=== PATIENT | female | born 1965 | race Caucasian/White ===

== ENCOUNTER 2018-08-19 09:34 | Emergency (ER) | payer SELFPAY ==
--- NOTE | 2018-08-19 11:03 | EDM.PDOC ---
ED HPI GENERAL MEDICAL PROBLEM - General Chief Complaint: Gastrointestinal Problem Stated Complaint: VOMITING/DIARRHEA Time Seen by Provider: 08/19/18 11:02 Source of Information: Reports: Patient History Limitations: Reports: No Limitations - History of Present Illness INITIAL COMMENTS - FREE TEXT/NARRATIVE: Patient is a 52-year-old female presents ED complaining of right upper quadrant abdominal pain with diarrhea every 2 hours while awake. States the discomfort and diarrhea started this past Monday. She has a previous diagnosis of C. difficile 4 requiring oral antibiotics and also fecal transplant. Last episode was 2 years ago. As of recent she has been on extended course of antibiotics including: Cipro which was recently completed this past for concerns of developing a infection with passing kidney stone. She has a kidney stone that measures 5 mm in diameter to the right urinary tract system that she continues to try and pass. She has appointment with urologist this coming week if it does not pass by . In addition she was on Keflex 2 weeks prior for a root canal. She is quite convinced at this point that she has C. difficile again. She says it has a distinct smell present. She states in the past testing indicated she did not have C. difficile. They put her on loperamide to decrease her bowel movements and became septic. Further testing indicated she did have C. difficile. In addition she does have some discomfort with starting to urinate. Denies any burning sensation. The pain to the right flank and right CVA area is chronic unchanged with recent diagnosis of kidney stone. She has had her gallbladder removed. She states in the past with being C. difficile diagnosis pain would start at the right upper quadrant. 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 In the past she's also become septic due to axis of the port right chest in non sterile manner. She has no port in place at this time. She refuses IV at this time. Right Upper Abdominal Pain Score (Numeric/FACES): 7 - Related Data Allergies Allergy/AdvReac Type Severity Reaction Status Date / Time codeine Allergy Itching Verified 08/19/18 09:58 fentanyl Allergy Other Verified 08/19/18 09:58 Sulfa (Sulfonamide Allergy Hives Verified 08/19/18 09:58 Antibiotics) Home Meds: Home Meds Acetaminophen/oxyCODONE [Percocet 325-5 MG] 1 each PO QID PRN #15 tab 08/19/18 [ Rx] Losartan [Cozaar] 50 mg PO DAILY 08/19/18 [History] Metoprolol Succinate 100 mg PO BID 08/19/18 [History] Ondansetron [Zofran ODT] 4 mg PO Q6H PRN #15 tab.dis 08/19/18 [Rx] Potassium Chloride [Klor-Con M20] 60 meq PO DAILY 08/19/18 [History] Tamsulosin HCl [Flomax] 0.4 mg PO QAM #7 cap.er.24h 08/19/18 [Rx] Past Medical History Oncologic (Cancer) History: Reports: Breast, Other (See Below) Other Oncologic History: mets to c5-c7 - Past Surgical History GI Surgical History: Reports: Appendectomy, Cholecystectomy, Other (See Below) Other GI Surgeries/Procedures: colon resection Oncologic Surgical History: Reports: Biopsy of Breast Social & Family History - Tobacco Use Smoking Status *Q: Never Smoker - Caffeine Use Caffeine Use: Reports: None - Recreational Drug Use Recreational Drug Use: No ED ROS GENERAL - Review of Systems Review Of Systems: See Below Constitutional: Reports: Decreased Appetite. Denies: Fever, Chills, Malaise, Weakness, Fatigue HEENT: Reports: No Symptoms Respiratory: Reports: No Symptoms Cardiovascular: Reports: No Symptoms GI/Abdominal: Reports: Abdominal Pain (ruq), Diarrhea, Decreased Appetite, Distension, Nausea. Denies: Black Stool, Bloody Stool, Constipation, Flatus, Hematemesis, Hematochezia, Melena, Vomiting : Reports: Dysuria (with starting urination. No burning sensation. ), Flank Pain (right sided ). Denies: Discharge, Frequency, Hematuria, Incontinence, Pain, Urgency, Urinary Retention Musculoskeletal: Reports: No Symptoms Skin: Reports: No Symptoms Neurological: Reports: No Symptoms ED EXAM, GI/ABD - Physical Exam Exam: See Below Exam Limited By: No Limitations General Appearance: Alert, WD/WN, No Apparent Distress Eyes: Bilateral: Normal Appearance Ears: Hearing Grossly Normal Nose: Normal Inspection Throat/Mouth: Normal Inspection, Normal Oropharynx, Normal Voice, No Airway Compromise, Other (moist oral mucosa) Head: Atraumatic, Normocephalic Neck: Normal Inspection, Supple, Non-Tender, Full Range of Motion Respiratory/Chest: No Respiratory Distress, Lungs Clear, Normal Breath Sounds, No Accessory Muscle Use, Chest Non-Tender Cardiovascular: Normal Peripheral Pulses, Regular Rate, Rhythm, No Murmur GI/Abdominal Exam: Normal Bowel Sounds, Soft, No Organomegaly, No Distention, Tender (RUQ) (Female) Exam: Deferred Rectal (Female) Exam: Deferred Back Exam: Normal Inspection, Full Range of Motion, CVA Tenderness (R). No: CVA Tenderness (L) Extremities: Normal Inspection Neurological: Alert, Oriented, CN II-XII Intact, Normal Cognition, No Motor/ Sensory Deficits Psychiatric: Normal Affect, Normal Mood Skin Exam: Warm, Dry, Intact, Normal Color, No Rash Course - Vital Signs Last Recorded V/S: Last Vital Signs Temp 98.7 F 08/19/18 09:51 Pulse 87 08/19/18 09:51 Resp 18 08/19/18 09:51 BP 104/69 08/19/18 09:51 Pulse Ox 100 08/19/18 09:51 - Orders/Labs/Meds Orders: Active Orders 24 hr Category Date Time Status CULTURE STOOL + SHIGATOX [RM] Stat Lab 08/19/18 11:26 Received Isolation [COMM] Stat Oth 08/19/18 10:15 Ordered Labs: Laboratory Tests 08/19/18 08/19/18 08/19/18 Range/Units 10:07 11:14 11:14 WBC 7.97 (3.98-10.04) K/mm3 RBC 5.42 H (3.98-5.22) M/mm3 Hgb 10.8 L (11.2-15.7) gm/L Hct 36.5 (34.1-44.9) % MCV 67.3 L (79.4-94.8) fl MCH 19.9 L (25.6-32.2) pg MCHC 29.6 L (32.2-35.5) g/dl RDW Std Deviation 44.7 (36.4-46.3) fL Plt Count 523 H (182-369) K/mm3 MPV 8.6 L (9.4-12.3) fl Neutrophils % (Manual) 60 (40-60) % Band Neutrophils % 0 (0-10) % Lymphocytes % (Manual) 32 (20-40) % Atypical Lymphs % 0 % Monocytes % (Manual) 7 (2-10) % Eosinophils % (Manual) 1 (0.7-5.8) % Basophils % (Manual) 0 L (0.1-1.2) Platelet Estimate Increased Polychromasia 2+ moderate Hypochromasia 3+ marked Anisocytosis 3+ marked RBC Morph Comment Abnormal Sodium 139 (136-145) mEq/L Potassium 4.3 (3.5-5.1) mEq/L Chloride 102 (98-107) mEq/L Carbon Dioxide 20 L (21-32) mEq/L Anion Gap 21.3 H (5-15) BUN 14 (7-18) mg/dL Creatinine 0.7 (0.55-1.02) mg/dL Est Cr Clr Drug Dosing 66.76 mL/min Estimated GFR (MDRD) > 60 (>60) mL/min BUN/Creatinine Ratio 20.0 H (14-18) Glucose 107 H (74-106) mg/dL Calcium 9.5 (8.5-10.1) mg/dL Total Bilirubin 0.3 (0.2-1.0) mg/dL AST 33 (15-37) U/L ALT 37 (14-59) U/L Alkaline Phosphatase 135 H (46-116) U/L C-Reactive Protein < 0.2 (<1.0) mg/dL Total Protein 8.7 H (6.4-8.2) g/dl Albumin 4.0 (3.4-5.0) g/dl Globulin 4.7 gm/dL Albumin/Globulin Ratio 0.9 L (1-2) Lipase 321 (73-393) U/L Urine Color (Yellow) Urine Appearance (Clear) Urine pH (5.0-8.0) Ur Specific [place] (1.005-1.030) Urine Protein (Negative) Urine Glucose (UA) (Negative) Urine Ketones (Negative) Urine Occult Blood (Negative) Urine Nitrite (Negative) Urine Bilirubin (Negative) Urine Urobilinogen (0.2-1.0) Ur Leukocyte Esterase (Negative) Urine RBC (0-5) /hpf Urine WBC (0-5) /hpf Ur Epithelial Cells (0-5) /hpf Urine Bacteria (FEW) /hpf Urine Mucus (FEW) /hpf C.difficile [id number] Presumptive negative C. difficile Tox (PCR) Negative 08/19/18 Range/Units 12:22 WBC (3.98-10.04) K/mm3 RBC (3.98-5.22) M/mm3 Hgb (11.2-15.7) gm/L Hct (34.1-44.9) % MCV (79.4-94.8) fl MCH (25.6-32.2) pg MCHC (32.2-35.5) g/dl RDW Std Deviation (36.4-46.3) fL Plt Count (182-369) K/mm3 MPV (9.4-12.3) fl Neutrophils % (Manual) (40-60) % Band Neutrophils % (0-10) % Lymphocytes % (Manual) (20-40) % Atypical Lymphs % % Monocytes % (Manual) (2-10) % Eosinophils % (Manual) (0.7-5.8) % Basophils % (Manual) (0.1-1.2) Platelet Estimate Polychromasia Hypochromasia Anisocytosis RBC Morph Comment Sodium (136-145) mEq/L Potassium (3.5-5.1) mEq/L Chloride (98-107) mEq/L Carbon Dioxide (21-32) mEq/L Anion Gap (5-15) BUN (7-18) mg/dL Creatinine (0.55-1.02) mg/dL Est Cr Clr Drug Dosing mL/min Estimated GFR (MDRD) (>60) mL/min BUN/Creatinine Ratio (14-18) Glucose (74-106) mg/dL Calcium (8.5-10.1) mg/dL Total Bilirubin (0.2-1.0) mg/dL AST (15-37) U/L ALT (14-59) U/L Alkaline Phosphatase (46-116) U/L C-Reactive Protein (<1.0) mg/dL Total Protein (6.4-8.2) g/dl Albumin (3.4-5.0) g/dl Globulin gm/dL Albumin/Globulin Ratio (1-2) Lipase (73-393) U/L Urine Color Yellow (Yellow) Urine Appearance Clear (Clear) Urine pH 5.5 (5.0-8.0) Ur Specific [place] > or = 1.030 (1.005-1.030) Urine Protein 1+ H (Negative) Urine Glucose (UA) Negative (Negative) Urine Ketones Negative (Negative) Urine Occult Blood 3+ H (Negative) Urine Nitrite Negative (Negative) Urine Bilirubin Negative (Negative) Urine Urobilinogen 0.2 (0.2-1.0) Ur Leukocyte Esterase Trace H (Negative) Urine RBC 50-75 H (0-5) /hpf Urine WBC 0-5 (0-5) /hpf Ur Epithelial Cells 0-5 (0-5) /hpf Urine Bacteria Few H (FEW) /hpf Urine Mucus Few (FEW) /hpf C.difficile [id number] C. difficile Tox (PCR) Meds: Medications Discontinued Medications Generic Name Dose Route Start Last Admin Trade Name Freq PRN Reason Stop Dose Admin Ondansetron HCl 4 mg 08/19/18 11:34 08/19/18 11:52 Zofran Odt PO 08/19/18 11:35 4 mg ONETIME ONE Administration Oxycodone/Acetaminophen 2 tab 08/19/18 11:34 08/19/18 11:52 Percocet 325-5 Mg PO 08/19/18 11:35 2 tab ONETIME ONE Administration - Re-Assessments/Exams Free Text/Narrative Re-Assessment/Exam: Patient refuses IV at this time. Request Zofran and Percocet 2 tabs by mouth. Initial labs and studies include: C. difficile, stool wbc's, CBC, chem 14, UA, lipase, CRP, and CT the abdomen and pelvis with oral contrast only. Labs reviewed: White blood cell count 7.97, hemoglobin 10.8, MCV 67.3, platelet count 523, no neutrophilia or left shift. Sodium 139, potassium 4.3, CO2 20, AG 21.3, BUN 14, creatinine 0.7, glucose 107, alk phosphatase 135, CRP normal at 0.2. Lipase 321. C. difficile presumptive negative. C. difficile by PCR negative. Stool WBCs are negative. Patient states previous time she was diagnosed with C. difficile the initial testing were negative. I have ordered stool culture. 1326 Patient complaining of nausea. I have offered Phenergan or Reglan. Patient has opted to not receive any medications. Reglan causes agitation and Phenergan causes sedation. Pain has improved. 08/19/18 13:46 CT of the abdomen and pelvis has not been obtained yet. CT abdomen and pelvis Impression: 1. Small low-density findings within the pancreas. As mentioned above, uncertain if this is due to small cyst, slight edema or low density mass. Recommend nonemergent MRI to further evaluate. 2. Questionable solid mass within the right kidney versus hemorrhagic cyst. This can also be evaluated on non-emergent MRI. 3. Other incidental findings as noted above. Nothing acute is appreciated. Reassessment, patient is feeling much better after the above therapies. I discussed results of labs and CT of the abdomen and pelvis. She has appointment with her oncologist for this coming Monday. They are planning on doing an MRI of her abdomen to evaluate for these solid mass to the right kidney. In addition there is blood within her urine suggesting she still is attempting a past the kidney stone although it was not mentioned on CT study results. I will have the patient continue to strain her urine voids. Additional prescription for Flomax will be provided. In addition culture of the stool has been ordered. Number to call the ER has been provided for her to obtain results in the next 48 hours. Advised that once results are back that she would be notified as well. Return precautions were discussed with the patient. She was instructed to push the fluids. A prescription for Zofran will be provided as well. Patient had no further questions or concerns and agrees with plan. Departure - Departure Time of Disposition: 14:42 Disposition: Home, Self-Care 01 Condition: Good Clinical Impression: RUQ abdominal pain Diarrhea Qualifiers: Diarrhea type: unspecified type Qualified Code(s): R19.7 - Diarrhea, unspecified Hematuria Qualifiers: Hematuria type: unspecified type Qualified Code(s): R31.9 - Hematuria, unspecified N&V (nausea and vomiting) Qualifiers: Vomiting type: unspecified Vomiting Intractability: non-intractable Qualified Code(s): R11.2 - Nausea with vomiting, unspecified Anemia Qualifiers: Anemia type: unspecified type Qualified Code(s): D64.9 - Anemia, unspecified - Discharge Information Prescriptions: Acetaminophen/oxyCODONE [Percocet 325-5 MG] 1 each PO QID PRN #15 tab PRN Reason: Pain (Severe 7-10) Ondansetron [Zofran ODT] 4 mg PO Q6H PRN #15 tab.dis PRN Reason: Nausea/Vomiting Tamsulosin HCl [Flomax] 0.4 mg PO QAM #7 cap.er.24h Instructions: Diarrhea, Adult, Managing Pain Without Opioids, Food Choices to Help Relieve Diarrhea, Adult, Nausea and Vomiting, Adult, [id number], Dehydration, Adult, [id number], Hematuria, Adult Referrals: PCP,Not In Area [Primary Care Provider] - Forms: ED Department Discharge Additional Instructions: Reviewed the educational material related to diet for diarrhea. Utilize Zofran 4 mg ODT every 6 hours as needed for nausea/vomiting. Push the fluids. Stick with Gatorade, Powerade, Pedialyte, and water. In addition continue to strain urine voids. Take Flomax 1 tab every day. For pain utilize ibuprofen 600 mg every 6 hours. For severe pain take Percocet 1 tab every [address] needed[address] not drive today nor while taking the Percocet. See your oncologist for MRI of the abdomen to further evaluate abnormality noted on pancreas and also kidney. He'll be notified with results of stool culture. Please call back in 48 hours if you have not heard anything at this point. Continue to utilize good hand hygiene if this is actually C. difficile. Please return back to the ED if you develop any new or worsening symptoms. - My Orders Last 24 Hours: My Active Orders 08/19/18 11:26 CULTURE STOOL + SHIGATOX [RM] Stat - Assessment/Plan Last 24 Hours: My Active Orders 08/19/18 11:26 CULTURE STOOL + SHIGATOX [RM] Stat
[2018-08-19] MEDS ORDERED: Acetaminophen/oxyCODONE 325-5 MG Tab PO ONE (11:34)
[2018-08-19] MEDS ORDERED: Ondansetron 4 MG Tab.DIS PO ONE (11:34)
--- NOTE | 2018-08-19 13:56 | CT ---
CT abdomen and pelvis Technique: Multiple axial sections were obtained from above the dome of the diaphragm inferiorly through the pubic symphysis. Intravenous and oral contrast was not utilized. Comparison: No prior abdominal imaging. Findings: Small portion of the visualized lung bases show nothing acute. Cyst is noted within the right lobe of the liver measuring 1.6 cm. Mild air is noted within the intrahepatic ducts of the liver most likely due to previous biliary surgery. Surgical clips are seen from prior cholecystectomy. Metallic densities are seen within the upper retroperitoneum, uncertain if these are due to previous foreign bodies, embolization coils or surgical clips. Low density lesion which is partially visualized within the pancreas measuring about 2.0 cm. Uncertain if this represents a cyst, edema or low density mass. Adrenal glands show no nodule. Spleen appears normal in size. Small calcified granuloma is noted within the spleen. Kidneys show small nonobstructing calculi. Small solid appearing lesion is noted seen within the mid right kidney measuring 1.6 cm. Small cyst is noted within the upper left kidney measuring 9 mm in size. Aorta shows no aneurysm. No retroperitoneal adenopathy or mesenteric abnormalities are seen. No pelvic mass or adenopathy is seen. No free fluid or inflammatory change is seen within the abdomen or pelvis. Minimal sigmoid diverticuli are seen with no inflammatory change of diverticulitis. Bone window settings were reviewed which shows slight degenerative change within the spine. Bilateral spondylitic defects are noted at L5-S1. Impression: 1. Small low-density findings within the pancreas. As mentioned above, uncertain if this is due to small cyst, slight edema or low density mass. Recommend nonemergent MRI to further evaluate. 2. Questionable solid mass within the right kidney versus hemorrhagic cyst. This can also be evaluated on non-emergent MRI. 3. Other incidental findings as noted above. Nothing acute is appreciated. Diagnostic code #9
== END 2018-08-19 15:00 | disposition home or self-care (01) ==
LOC: JD.ED 09:34
DX: R19.7 Diarrhea, unspecified (principal); R31.9 Hematuria, unspecified; R10.11 Right upper quadrant pain; R11.2 Nausea with vomiting, unspecified; D64.9 Anemia, unspecified; Z88.5 Allergy status to narcotic agent; Z88.2 Allergy status to sulfonamides
CPT/HCPCS: 36415; 74176; 80053; 81001; 83690; 85007; 85027; 86140; 87046; 87427; 87493; 89055; 99284; A9270

== ENCOUNTER 2018-10-18 21:09 | Emergency (ER) | payer BC, OTHER ==
[2018-10-18] MEDS ORDERED: Acetaminophen/oxyCODONE 325-5 MG Tab PO ONE (21:49)
[2018-10-18] MEDS ORDERED: Ondansetron 4 MG Tab.DIS PO ONE (21:49)
--- NOTE | 2018-10-18 21:53 | EDM.PDOC ---
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 She's recently diagnosed with kidney stone measuring approximate 5 mm to the proximal ureter of the right side. There were also diagnosed with a tumor to the right kidney concerning for metastases. Her PCP who is located in [place] instructed the patient to see if this passes by next Monday. If not they will have to perform lithotripsy. She is also scheduled to have biopsy of the kidney tumor in the next 2 weeks. She has been experiencing right-sided flank pain that radiates into her right inguinal region off and on up until today. The pain has been more constant rated a 6 out of 10. She does have some minimal painful urination with starting this slowly subsides. There has been no increased frequency or urination, decrease amount noted. She does have a spell smelling odor to her urine. She has been afebrile. She believes the kidney stone is moving. She does not want a IV started. She request some pain medications as well as antinausea meds. She states 2 Percocet tabs and Zofran would be fine. Patient is not undergoing any additional chemotherapy or radiation treatment for her cancer. Patient has had a cholecystectomy, appendectomy,and total hysterectomy. Groin Pain Score (Numeric/FACES): 6 - Related Data Allergies Allergy/AdvReac Type Severity Reaction Status Date / Time codeine Allergy Itching Verified 10/18/18 21:21 fentanyl Allergy Other Verified 10/18/18 21:21 Sulfa (Sulfonamide Allergy Hives Verified 10/18/18 21:21 Antibiotics) Home Meds: Home Meds Losartan [Cozaar] 50 mg PO DAILY 08/19/18 [History] Metoprolol Succinate 100 mg PO BID 08/19/18 [History] Ondansetron [Zofran ODT] 4 mg PO Q6H PRN #15 tab.dis 08/19/18 [Rx] Potassium Chloride [Klor-Con M20] 60 meq PO DAILY 08/19/18 [History] Apixaban [Eliquis] 5 mg PO BID 10/18/18 [History] Ferrous Sulfate [Iron] 325 mg PO DAILY 10/18/18 [History] Methotrexate/PF [Rasuvo 30 mg/0.6 ml Autoinj] 30 mg IM ASDIRECTED 10/18/18 [ History] Past Medical History HEENT History: Reports: Impaired Vision Other HEENT History: Wears glasses Cardiovascular History: Reports: Blood Clots/VTE/DVT, Hypertension Gastrointestinal History: Reports: Pancreatitis Genitourinary History: Reports: Renal Calculus, Other (See Below) Other Genitourinary History: Tumor on kidney, biopsy scheduled for next week Musculoskeletal History: Reports: Fracture Hematologic History: Reports: Blood Transfusion(s) Oncologic (Cancer) History: Reports: Breast, Other (See Below) Other Oncologic History: mets to c5-c7 - Infectious Disease History Infectious Disease History: Reports: C-Difficile - Past Surgical History GI Surgical History: Reports: Appendectomy, Cholecystectomy, Hernia, Abdominal, Other (See Below) Other GI Surgeries/Procedures: colon resection, splenic aneurysm with coil Female Surgical History: Reports: Hysterectomy, Salpingo-Oophorectomy Oncologic Surgical History: Reports: Biopsy of Breast Social & Family History - Tobacco Use Smoking Status *Q: Never Smoker - Caffeine Use Caffeine Use: Reports: None - Recreational Drug Use Recreational Drug Use: No ED ROS GENERAL - Review of Systems Review Of Systems: See Below Constitutional: Reports: No Symptoms Respiratory: Reports: No Symptoms Cardiovascular: Reports: No Symptoms ED EXAM, GI/ABD - Physical Exam Exam: See Below Exam Limited By: No Limitations General Appearance: Alert, WD/WN, Mild Distress Ears: Hearing Grossly Normal Nose: Normal Inspection Throat/Mouth: Normal Voice, No Airway Compromise Head: Atraumatic, Normocephalic Neck: Normal Inspection, Supple Respiratory/Chest: No Respiratory Distress, Lungs Clear, Normal Breath Sounds, No Accessory Muscle Use, Chest Non-Tender Cardiovascular: Normal Peripheral Pulses, Regular Rate, Rhythm GI/Abdominal Exam: Normal Bowel Sounds, Soft, Non-Tender (No tenderness elicited on examination.), No Organomegaly, No Distention Back Exam: CVA Tenderness (R). No: Normal Inspection, Full Range of Motion, CVA Tenderness (L) Extremities: Normal Inspection, Normal Range of Motion Neurological: Alert, Oriented, CN II-XII Intact, Normal Cognition, No Motor/ Sensory Deficits Psychiatric: Normal Affect, Normal Mood Skin Exam: Warm, Dry, Intact, Normal Color, No Rash Course - Vital Signs Last Recorded V/S: Last Vital Signs Temp 98.5 F 10/18/18 21:17 Pulse 103 H 10/18/18 22:56 Resp 18 10/18/18 21:17 BP 172/105 H 10/18/18 22:56 Pulse Ox 99 10/18/18 21:17 - Orders/Labs/Meds Orders: Active Orders 24 hr Category Date Time Status CULTURE URINE [RM] Stat Lab 10/18/18 22:48 Stop Req Labs: Laboratory Tests 10/18/18 10/18/18 10/18/18 Range/Units 21:30 22:05 22:05 WBC 7.90 (3.98-10.04) K/mm3 RBC 4.74 (3.98-5.22) M/mm3 Hgb 9.5 L (11.2-15.7) gm/L Hct 32.5 L (34.1-44.9) % MCV 68.6 L (79.4-94.8) fl MCH 20.0 L (25.6-32.2) pg MCHC 29.2 L (32.2-35.5) g/dl RDW Std Deviation 45.3 (36.4-46.3) fL Plt Count 534 H (182-369) K/mm3 MPV 8.4 L (9.4-12.3) fl Neutrophils % (Manual) 50 (40-60) % Band Neutrophils % 0 (0-10) % Lymphocytes % (Manual) 41 H (20-40) % Atypical Lymphs % 0 % Monocytes % (Manual) 7 (2-10) % Eosinophils % (Manual) 0 L (0.7-5.8) % Basophils % (Manual) 2 H (0.1-1.2) Platelet Estimate Increased Hypochromasia 3+ marked Anisocytosis 3+ marked Microcytosis 2+ moderate RBC Morph Comment Abnormal Sodium 141 (136-145) mEq/L Potassium 3.3 L (3.5-5.1) mEq/L Chloride 106 (98-107) mEq/L Carbon Dioxide 20 L (21-32) mEq/L Anion Gap 18.3 H (5-15) BUN 17 (7-18) mg/dL Creatinine 0.7 (0.55-1.02) mg/dL Est Cr Clr Drug Dosing 65.99 mL/min Estimated GFR (MDRD) > 60 (>60) mL/min BUN/Creatinine Ratio 24.3 H (14-18) Glucose 100 (74-106) mg/dL Calcium 8.9 (8.5-10.1) mg/dL Total Bilirubin 0.3 (0.2-1.0) mg/dL AST 17 (15-37) U/L ALT 23 (14-59) U/L Alkaline Phosphatase 127 H (46-116) U/L C-Reactive Protein 0.2 (<1.0) mg/dL Total Protein 7.9 (6.4-8.2) g/dl Albumin 3.6 (3.4-5.0) g/dl Globulin 4.3 gm/dL Albumin/Globulin Ratio 0.8 L (1-2) Urine Color Light yellow (Yellow) Urine Appearance Slt cloudy H (Clear) Urine pH 6.0 (5.0-8.0) Ur Specific [place] > or = 1.030 (1.005-1.030) Urine Protein 1+ H (Negative) Urine Glucose (UA) Negative (Negative) Urine Ketones Negative (Negative) Urine Occult Blood 3+ H (Negative) Urine Nitrite Negative (Negative) Urine Bilirubin Negative (Negative) Urine Urobilinogen 0.2 (0.2-1.0) Ur Leukocyte Esterase 1+ H (Negative) Urine RBC >100 H (0-5) /hpf Urine WBC 10-20 H (0-5) /hpf Ur Epithelial Cells 10-20 H (0-5) /hpf Urine Bacteria Moderate H (FEW) /hpf Urine Mucus Many H (FEW) /hpf 10/18/18 Range/Units 22:48 WBC (3.98-10.04) K/mm3 RBC (3.98-5.22) M/mm3 Hgb (11.2-15.7) gm/L Hct (34.1-44.9) % MCV (79.4-94.8) fl MCH (25.6-32.2) pg MCHC (32.2-35.5) g/dl RDW Std Deviation (36.4-46.3) fL Plt Count (182-369) K/mm3 MPV (9.4-12.3) fl Neutrophils % (Manual) (40-60) % Band Neutrophils % (0-10) % Lymphocytes % (Manual) (20-40) % Atypical Lymphs % % Monocytes % (Manual) (2-10) % Eosinophils % (Manual) (0.7-5.8) % Basophils % (Manual) (0.1-1.2) Platelet Estimate Hypochromasia Anisocytosis Microcytosis RBC Morph Comment Sodium (136-145) mEq/L Potassium (3.5-5.1) mEq/L Chloride (98-107) mEq/L Carbon Dioxide (21-32) mEq/L Anion Gap (5-15) BUN (7-18) mg/dL Creatinine (0.55-1.02) mg/dL Est Cr Clr Drug Dosing mL/min Estimated GFR (MDRD) (>60) mL/min BUN/Creatinine Ratio (14-18) Glucose (74-106) mg/dL Calcium (8.5-10.1) mg/dL Total Bilirubin (0.2-1.0) mg/dL AST (15-37) U/L ALT (14-59) U/L Alkaline Phosphatase (46-116) U/L C-Reactive Protein (<1.0) mg/dL Total Protein (6.4-8.2) g/dl Albumin (3.4-5.0) g/dl Globulin gm/dL Albumin/Globulin Ratio (1-2) Urine Color Yellow (Yellow) Urine Appearance Clear (Clear) Urine pH 5.5 (5.0-8.0) Ur Specific [place] > or = 1.030 (1.005-1.030) Urine Protein Trace H (Negative) Urine Glucose (UA) Negative (Negative) Urine Ketones Negative (Negative) Urine Occult Blood 2+ H (Negative) Urine Nitrite Negative (Negative) Urine Bilirubin Negative (Negative) Urine Urobilinogen 0.2 (0.2-1.0) Ur Leukocyte Esterase Negative (Negative) Urine RBC >100 H (0-5) /hpf Urine WBC 0-5 (0-5) /hpf Ur Epithelial Cells 0-5 (0-5) /hpf Urine Bacteria Few (FEW) /hpf Urine Mucus Many H (FEW) /hpf Meds: Medications Discontinued Medications Generic Name Dose Route Start Last Admin Trade Name Freq PRN Reason Stop Dose Admin Metoprolol Succinate 100 mg 10/18/18 22:48 10/18/18 22:56 Toprol Xl PO 10/18/18 22:49 100 mg ONETIME ONE Administration Ondansetron HCl 4 mg 10/18/18 21:49 10/18/18 21:53 Zofran Odt PO 10/18/18 21:50 4 mg ONETIME ONE Administration Oxycodone/Acetaminophen 2 tab 10/18/18 21:49 10/18/18 21:53 Percocet 325-5 Mg PO 10/18/18 21:50 2 tab ONETIME ONE Administration Tamsulosin HCl 0.4 mg 10/18/18 23:12 Flomax PO 10/18/18 23:13 ONETIME ONE - Re-Assessments/Exams Free Text/Narrative Re-Assessment/Exam: Again patient refuses IV. Patient appears to be in mild discomfort. She is afebrile nontoxic appearing. I have ordered Percocet 5-325 mg tabs 2 and Zofran 4 mg ODT. UA has been ordered. Will obtain CBC, chem 14, and CRP. Labs reviewed: White blood cell count 7.90. Hemoglobin 9.5, MCV 68.6, platelet count 534. Sodium 141, potassium mildly low at 3.3, CO2 20, AG 18.3, creatinine normal, glucose 100, alk phosphatase 127. CRP is normal. UA is grossly contaminated. Protein one plus, 3+ occult blood, nitrates negative, leukocyte esterase 1+, urine rbc's greater 100, urine wbc's 10-20, urine epithelial cells 10-20, urine bacteria moderate, urine mucous many. 2238 reassessment, patient resting comfortably in bed. Vital signs are stable. I have reviewed the lab results with the patient. I informed her that the UA that was provided as contaminated. I would like to get a UA utilizing quick in and out catheter. BP 172/105 heart rate 102. Patient's initial blood pressure with admission was elevated. She has a history of hypertension and is on losartan and metoprolol. She's not been able to take the metoprolol or lower sudden this evening with being nauseated. Nausea has subsided. I will order home med to be administered here. Patient is on metoprolol succinate 100 mg twice a day. Metoprolol succinate 100 mg has been ordered here in the ED. 10/18/18 23:09 Second UA sample given INDICATED trace protein, 2+ occult blood, nitrates negative, leukocyte esterase negative, urine rbc's greater than 100, urine wbc's 0-5, mucous many. No urine culture will be obtained. I suspect patient is passing the kidney stone. Urine strainer, percocet, flomax, and zofran will be provided upon discharge. Return precautions discussed with patient. She voiced understanding. Discharge instructions as documented. Departure - Departure Time of Disposition: 23:12 Disposition: Home, Self-Care 01 Condition: Good Clinical Impression: Kidney stone Hematuria Qualifiers: Hematuria type: unspecified type Qualified Code(s): R31.9 - Hematuria, unspecified Anemia Qualifiers: Anemia type: unspecified type Qualified Code(s): D64.9 - Anemia, unspecified N&V (nausea and vomiting) Qualifiers: Vomiting type: unspecified Vomiting Intractability: non-intractable Qualified Code(s): R11.2 - Nausea with vomiting, unspecified HTN (hypertension) Qualifiers: Hypertension type: unspecified Qualified Code(s): I10 - Essential (primary) hypertension - Discharge Information Instructions: Kidney Stones, Nausea and Vomiting, Adult, Pain Medicine Instructions, [id number], Managing Your Hypertension, Hematuria, Adult Referrals: PCP,Not In Area [Primary Care Provider] - Forms: ED Department Discharge Additional Instructions: Take the Zofran, Percocet, and Flomax as prescribed. Push the fluids. Strain all urine voids to ensure kidney stone passes. Do not drive this evening since receiving a sedative medication. Do not drive while taking the Percocet. Suggest taking MiraLAX one capful daily while taking the Percocet to the risk of developing constipation. Please return to the ED if you develop any new or worsening symptoms. Follow-up with Urologists of your choice if stone has not passed by next week. Monitor blood pressure. Take all blood pressure medications as prescribed starting tomorrow morning. - My Orders Last 24 Hours: My Active Orders 10/18/18 22:48 CULTURE URINE [RM] Stat - Assessment/Plan Last 24 Hours: My Active Orders 10/18/18 22:48 CULTURE URINE [RM] Stat
[2018-10-18] MEDS ORDERED: Metoprolol Succinate 50 MG Tab.ER PO ONE (22:48)
[2018-10-18] MEDS ORDERED: Tamsulosin 0.4 MG Cap.ER PO ONE (23:12)
== END 2018-10-18 23:27 | disposition home or self-care (01) ==
LOC: JD.ED 21:09
DX: N20.0 Calculus of kidney (principal); R31.9 Hematuria, unspecified; D64.9 Anemia, unspecified; R11.2 Nausea with vomiting, unspecified; I10 Essential (primary) hypertension; Z79.899 Other long term (current) drug therapy; Z88.5 Allergy status to narcotic agent; Z88.8 Allergy status to other drugs, medicaments and biological substances; Z88.2 Allergy status to sulfonamides
CPT/HCPCS: 36415; 80053; 81001; 85007; 85027; 86140; 99283; A9270; 87086; 99284

== ENCOUNTER 2018-10-20 18:31 | Emergency (ER) | payer MEDICAID ==
[2018-10-20] MEDS ORDERED: Ondansetron 4 MG Tab.DIS PO ONE (19:00)
[2018-10-20] MEDS ORDERED: Acetaminophen/oxyCODONE 325-5 MG Tab PO ONE (19:00)
--- NOTE | 2018-10-20 19:10 | EDM.PDOC ---
ED HPI GENERAL MEDICAL PROBLEM - General Chief Complaint: Genitourinary Problem Stated Complaint: KIDNEY STONE STUCK Time Seen by Provider: 10/20/18 18:37 Source of Information: Reports: Patient, RN Notes Reviewed History Limitations: Reports: No Limitations - History of Present Illness INITIAL COMMENTS - FREE TEXT/NARRATIVE: Patient is a 53-year-old female who presents to the ED for evaluation of a possible stuck kidney stone. The patient states she was diagnosed with a 5 mm kidney stone, she was seen in our ER this last for problems relating to the kidney stone. She has had pain in her right flank and right groin. She notes a history of metastatic breast cancer, with a tumor on her right kidney also a suspicious lesion in her liver. The patient states she has had some nausea and vomiting with this. She is able to go to the bathroom still, however she is not getting a whole lot of urine out each time. The patient does doctor in [place], and her primary care provider stated if she does not pass the stone by this coming October 24 that they would take the stone out with lithotripsy. The patient comes to the ER today, as she is worried she might have a UTI versus a stuck kidney stone versus pain from the tumor. She notes she was out and about today and may have overdone it and may have gotten the pain out of control. She notes she has been straining her urine at home, and has not seen any stone passed. She does have a extensive history of kidney stones, and can usually tell when one of these passes, she has not had this feeling with this stone. 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 She has been trying to increase her oral fluids. Right Flank Pain Score (Numeric/FACES): 6 - Related Data Allergies Allergy/AdvReac Type Severity Reaction Status Date / Time codeine Allergy Itching Verified 10/20/18 18:35 fentanyl Allergy Other Verified 10/20/18 18:35 Sulfa (Sulfonamide Allergy Hives Verified 10/20/18 18:35 Antibiotics) Home Meds: Home Meds Losartan [Cozaar] 50 mg PO DAILY 08/19/18 [History] Metoprolol Succinate 100 mg PO BID 08/19/18 [History] Ondansetron [Zofran ODT] 4 mg PO Q6H PRN #15 tab.dis 08/19/18 [Rx] Potassium Chloride [Klor-Con M20] 60 meq PO DAILY 08/19/18 [History] Apixaban [Eliquis] 5 mg PO BID 10/18/18 [History] Ferrous Sulfate [Iron] 325 mg PO DAILY 10/18/18 [History] Methotrexate/PF [Rasuvo 30 mg/0.6 ml Autoinj] 30 mg IM ASDIRECTED 10/18/18 [ History] Acetaminophen/oxyCODONE [Percocet 325-10 MG] 1 tab PO Q6H PRN #20 tab 10/20/18 [ Rx] Ciprofloxacin [Ciprofloxacin HCl] 500 mg PO BID #14 tab 10/20/18 [Rx] Ondansetron [Zofran ODT] 4 mg PO Q8H PRN #20 tab.dis 10/20/18 [Rx] Tamsulosin HCl [Flomax] 0.4 mg PO DAILY 10/20/18 [History] Past Medical History HEENT History: Reports: Impaired Vision Other HEENT History: Wears glasses Cardiovascular History: Reports: Blood Clots/VTE/DVT, Hypertension Gastrointestinal History: Reports: Pancreatitis Genitourinary History: Reports: Renal Calculus, Other (See Below) Other Genitourinary History: Tumor on kidney, biopsy scheduled for 10/24/2018. Musculoskeletal History: Reports: Fracture Hematologic History: Reports: Blood Transfusion(s) Oncologic (Cancer) History: Reports: Breast, Other (See Below) Other Oncologic History: mets to c5-c7 - Infectious Disease History Infectious Disease History: Reports: C-Difficile - Past Surgical History GI Surgical History: Reports: Appendectomy, Cholecystectomy, Hernia, Abdominal, Other (See Below) Other GI Surgeries/Procedures: colon resection, splenic aneurysm with coil Female Surgical History: Reports: Hysterectomy, Salpingo-Oophorectomy Oncologic Surgical History: Reports: Biopsy of Breast Social & Family History - Tobacco Use Smoking Status *Q: Never Smoker - Caffeine Use Caffeine Use: Reports: None ED ROS GENERAL - Review of Systems Review Of Systems: See Below Constitutional: Denies: Fever, Chills HEENT: Reports: No Symptoms Respiratory: Reports: No Symptoms Cardiovascular: Reports: No Symptoms Endocrine: Reports: No Symptoms GI/Abdominal: Reports: Nausea, Vomiting. Denies: Constipation, Diarrhea : Reports: Flank Pain (R flank/groin). Denies: Dysuria, Frequency, Urgency Musculoskeletal: Reports: No Symptoms Skin: Reports: No Symptoms Neurological: Reports: No Symptoms Psychiatric: Reports: No Symptoms Hematologic/Lymphatic: Reports: No Symptoms Immunologic: Reports: No Symptoms ED EXAM, RENAL/ - Physical Exam Exam: See Below Exam Limited By: No Limitations General Appearance: Alert, WD/WN, Mild Distress (Patient is shifting from foot to foot in the room, has obvious anxiety present). No: Active Emesis Head: Atraumatic, Normocephalic Neck: Normal Inspection Respiratory/Chest: No Respiratory Distress, Lungs Clear, Normal Breath Sounds, No Accessory Muscle Use, Chest Non-Tender Cardiovascular: Normal Peripheral Pulses, Regular Rate, Rhythm, No Murmur GI/Abdominal: Normal Bowel Sounds, Soft, Non-Tender, No Distention, No Mass Back Exam: Normal Inspection, Full Range of Motion, CVA Tenderness (R). No: CVA Tenderness (L) Extremities: Normal Inspection, Normal Capillary Refill Neurological: Alert, Oriented, Normal Cognition, Normal Gait, No Motor/Sensory Deficits Psychiatric: Normal Affect, Normal Mood Skin Exam: Warm, Dry, Intact, Normal Color, No Rash Course - Vital Signs Last Recorded V/S: Last Vital Signs Temp 98.2 F 10/20/18 18:35 Pulse 100 10/20/18 18:35 Resp 18 10/20/18 18:35 BP 145/119 H 10/20/18 18:35 Pulse Ox 100 10/20/18 18:35 - Orders/Labs/Meds Orders: Active Orders 24 hr Category Date Time Status CULTURE URINE [RM] Routine Lab 10/20/18 19:00 Received Labs: Laboratory Tests 10/20/18 Range/Units 19:00 Urine Color Yellow (Yellow) Urine Appearance Clear (Clear) Urine pH 5.5 (5.0-8.0) Ur Specific [place] > or = 1.030 (1.005-1.030) Urine Protein 1+ H (Negative) Urine Glucose (UA) Negative (Negative) Urine Ketones Negative (Negative) Urine Occult Blood 3+ H (Negative) Urine Nitrite Negative (Negative) Urine Bilirubin Negative (Negative) Urine Urobilinogen 0.2 (0.2-1.0) Ur Leukocyte Esterase Trace H (Negative) Urine RBC 20-30 H (0-5) /hpf Urine WBC 5-10 H (0-5) /hpf Ur Epithelial Cells 5-10 H (0-5) /hpf Urine Bacteria Few (FEW) /hpf Urine Mucus Moderate H (FEW) /hpf Meds: Medications Discontinued Medications Generic Name Dose Route Start Last Admin Trade Name Ruthann PRN Reason Stop Dose Admin Ondansetron HCl 4 mg 10/20/18 19:00 10/20/18 19:08 Zofran Odt PO 10/20/18 19:01 4 mg ONETIME ONE Administration Oxycodone/Acetaminophen 2 tab 10/20/18 19:00 10/20/18 19:08 Percocet 325-5 Mg PO 10/20/18 19:01 2 tab ONETIME ONE Administration - Re-Assessments/Exams Free Text/Narrative Re-Assessment/Exam: 10/20/18 19:10 Patient presents to the ED for the evaluation of a possible stomach stone. Patient has been straining her urine and is not passed the stone yet. The patient states that the Percocet 5/325 she was given is not as helpful for the pain as the 2 tablets she received the other day in the ER. I did discuss the management of stuck kidney stone with the patient she is understanding that she will likely need to have this stone taken out by lithotripsy in [place], she is worried more today about a possible UTI as well, she does not want anything to interfere with the biopsy she is scheduled to have. I have provided patient with 2 tablets of Percocet 5/325 in the ER, and 4 mg ODT Zofran for management. She wishes not to have an IV for fluid rehydration. We will provide the patient with a prescription for Percocet 10/325 and Zofran 4 mg ODT. Have ordered a UA to evaluate for a possible UTI. 10/20/18 20:15 Patient's urinalysis has trace leukocyte esterase, 20-30 RBCs, 5-10 urine white blood cells, and 5-10 epithelial cells, which would suggest contamination. However due to the patient's history I will treat her for a suspected bladder infection due to possible kidney stone obstruction at this time. I did discuss this with Dr. Waterman, and he think this is an appropriate course of treatment, given the patient's history. Departure - Departure Time of Disposition: 20:17 Disposition: Home, Self-Care 01 Condition: Fair Clinical Impression: Nephrolithiasis UTI (urinary tract infection) Qualifiers: Urinary tract infection type: acute cystitis Hematuria presence: with hematuria Qualified Code(s): N30.01 - Acute cystitis with hematuria - Discharge Information *PRESCRIPTION DRUG MONITORING PROGRAM REVIEWED*: No *COPY OF PRESCRIPTION DRUG MONITORING REPORT IN PATIENT ELIDA: No Prescriptions: Acetaminophen/oxyCODONE [Percocet 325-10 MG] 1 tab PO Q6H PRN #20 tab PRN Reason: Pain Ciprofloxacin [Ciprofloxacin HCl] 500 mg PO BID #14 tab Ondansetron [Zofran ODT] 4 mg PO Q8H PRN #20 tab.dis PRN Reason: Nausea Instructions: Kidney Stones, [id number] Referrals: PCP,None [Primary Care Provider] - Forms: ED Department Discharge Additional Instructions: Have been evaluated in the ED today for a possible stuck kidney stone. It is very likely that your stone has not passed. A CT was not done at this ED visit, nor was an IV placed for IV hydration. Please continue to strain your urine to make sure that the stone has passed. You were given a prescription for oxycodone/acetaminophen 10/325's, please take one every 6 hours as needed for pain relief. you have been provided with a prescription for Zofran, take 1 tab dissolvable under your tongue every 8 hours as needed for nausea. You have been given a prescription for Ciprofloxacin 500mg BID. These have been electronically sent to the [place] pharmacy located in the [id number], address is [address] [place] [address]. in [place] this is also located in the [facility]. Please follow up with your providers in [place] on Monday as previously scheduled. Please return to the ED if your symptoms should change or worsen. - My Orders Last 24 Hours: My Active Orders 10/20/18 19:00 CULTURE URINE [RM] Routine - Assessment/Plan Last 24 Hours: My Active Orders 10/20/18 19:00 CULTURE URINE [RM] Routine
== END 2018-10-20 20:25 | disposition home or self-care (01) ==
LOC: JD.ED 18:31
DX: N30.01 Acute cystitis with hematuria (principal); N20.0 Calculus of kidney; I10 Essential (primary) hypertension; C50.919 Malignant neoplasm of unspecified site of unspecified female breast; Z79.899 Other long term (current) drug therapy; Z90.49 Acquired absence of other specified parts of digestive tract; Z90.710 Acquired absence of both cervix and uterus; Z88.5 Allergy status to narcotic agent; Z88.8 Allergy status to other drugs, medicaments and biological substances
CPT/HCPCS: 81001; 87086; 99284; A9270; 99283

== ENCOUNTER 2019-01-06 12:33 | Emergency (ER) | payer MEDICAID ==
[2019-01-06] MEDS ORDERED: Ondansetron 4 MG Tab.DIS PO ONE ×2 (13:15→14:14)
[2019-01-06] MEDS ORDERED: Acetaminophen/oxyCODONE 325-5 MG Tab PO ONE (13:15)
--- NOTE | 2019-01-06 13:57 | EDM.PDOC ---
ED HPI GENERAL MEDICAL PROBLEM - General Chief Complaint: Genitourinary Problem Stated Complaint: PAIN IN LOWER MID BACK Time Seen by Provider: 01/06/19 12:46 Source of Information: Reports: Patient History Limitations: Reports: No Limitations - History of Present Illness INITIAL COMMENTS - FREE TEXT/NARRATIVE: The patient presents with low back pain, nausea and vomiting. This has been going on for a few days. She says she has known kidney stones and her urologist back in [place] will be seeing her on Monday. She may have to have them removed. She has some nausea and vomiting with it. She has no fever or chills. She has some stabbing pain when she begins urinating. She does have a history of breast cancer with mets. Onset: Gradual Duration: Day(s): Location: Reports: Back Quality: Reports: Sharp Severity: Severe Improves with: Reports: None Worsens with: Reports: None Associated Symptoms: Reports: Nausea/Vomiting. 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) Other Treatments VARNISH MAKER HELPER: percocet Bilateral Flank Pain Score (Numeric/FACES): 6 - Related Data Allergies Allergy/AdvReac Type Severity Reaction Status Date / Time codeine Allergy Itching Verified 01/06/19 12:58 fentanyl Allergy Other Verified 01/06/19 12:58 Sulfa (Sulfonamide Allergy Hives Verified 01/06/19 12:58 Antibiotics) metoclopramide [From Reglan] AdvReac Other Verified 01/06/19 12:58 Home Meds: Home Meds Losartan [Cozaar] 50 mg PO DAILY 08/19/18 [History] Metoprolol Succinate 100 mg PO BID 08/19/18 [History] Potassium Chloride [Klor-Con M20] 60 meq PO DAILY 08/19/18 [History] Apixaban [Eliquis] 5 mg PO BID 10/18/18 [History] Ferrous Sulfate [Iron] 325 mg PO DAILY 10/18/18 [History] oxyCODONE 10 mg PO Q4H PRN #10 tablet 11/27/18 [Rx] Past Medical History HEENT History: Reports: Impaired Vision Other HEENT History: Wears glasses Cardiovascular History: Reports: Blood Clots/VTE/DVT, Hypertension Other Cardiovascular History: L leg blood clot Gastrointestinal History: Reports: Diverticulosis, Hiatal Hernia, Inflammatory Bowel Disease, PUD Genitourinary History: Reports: Renal Calculus Other Genitourinary History: 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: Musculoskeletal History: Reports: Arthritis, Fracture Endocrine/Metabolic History: Reports: Obesity/BMI 30+ Hematologic History: Reports: Blood Transfusion(s) Other Hematologic History: every 6 months- anemic Oncologic (Cancer) History: Reports: Breast, Other (See Below) Other Oncologic History: mets to c5-c7, mets to kidney and liver - Infectious Disease History Infectious Disease History: Reports: Chicken Pox, Shingles - Past Surgical History HEENT Surgical History: Reports: Oral Surgery Other HEENT Surgeries/Procedures: wisdom teeth Cardiovascular Surgical History: Reports: Vascular Surgery Other Cardiovascular Surgeries/Procedures: Splenic aneuryn coil GI Surgical History: Reports: Appendectomy, Cholecystectomy, Colon, Colonoscopy , EGD, Other (See Below) Female Surgical History: Reports: Section, Hysterectomy, Other (See Below) Other Female Surgeries/Procedures: bladder tumor removed last monday Musculoskeletal Surgical History: Reports: ORIF Other Musculoskeletal Surgeries/Procedures:: Finger sx, 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 Oncologic Surgical History: Reports: Biopsy of Breast, Other (See Below) Social & Family History - Family History Family Medical History: Noncontributory Oncologic: Reports: Uterine - Tobacco Use Smoking Status *Q: Never Smoker Second Hand Smoke Exposure: No - Caffeine Use Caffeine Use: Reports: None - Recreational Drug Use Recreational Drug Use: No - Living Situation & Occupation Living situation: Reports: , with Spouse Occupation: Unemployed ED ROS GENERAL - Review of Systems Review Of Systems: See Below Constitutional: Reports: No Symptoms HEENT: Reports: No Symptoms Respiratory: Reports: No Symptoms Cardiovascular: Reports: No Symptoms Endocrine: Reports: No Symptoms GI/Abdominal: Reports: Nausea, Vomiting. Denies: Abdominal Pain : Reports: Dysuria, Flank Pain Musculoskeletal: Reports: Back Pain Skin: Reports: No Symptoms ED EXAM, GI/ABD - Physical Exam Exam: See Below Exam Limited By: No Limitations General Appearance: Alert, No Apparent Distress Ears: Normal External Exam Nose: Normal Inspection Head: Atraumatic, Normocephalic Neck: Normal Inspection Respiratory/Chest: No Respiratory Distress, Lungs Clear, Normal Breath Sounds Cardiovascular: Regular Rate, Rhythm, No Edema, No Murmur GI/Abdominal Exam: Soft, Non-Tender, No Organomegaly, No Mass Back Exam: CVA Tenderness (L) Course - Vital Signs Last Recorded V/S: Last Vital Signs Temp 97.9 F 01/06/19 12:45 Pulse 104 H 01/06/19 12:45 Resp 12 01/06/19 12:45 BP 121/92 H 01/06/19 12:45 Pulse Ox 100 01/06/19 12:45 - Orders/Labs/Meds Orders: Active Orders 24 hr Category Date Time Status CBC WITH AUTO DIFF [HEME] Stat Lab 01/06/19 13:22 Results Ondansetron [Zofran ODT] Med 01/06/19 14:14 Once 4 mg PO ONETIME ONE Labs: Laboratory Tests 01/06/19 01/06/19 01/06/19 Range/Units 13:10 13:22 13:22 WBC 8.86 (3.98-10.04) K/mm3 RBC 4.76 (3.98-5.22) M/mm3 Hgb 9.6 L (11.2-15.7) gm/L Hct 33.1 L (34.1-44.9) % MCV 69.5 L (79.4-94.8) fl MCH 20.2 L (25.6-32.2) pg MCHC 29.0 L (32.2-35.5) g/dl RDW Std Deviation 45.3 (36.4-46.3) fL Plt Count 491 H (182-369) K/mm3 MPV 8.4 L (9.4-12.3) fl Neut % (Auto) 65.8 (34.0-71.1) % Lymph % (Auto) 26.4 (19.3-51.7) % [place] % (Auto) 6.2 (4.7-12.5) % Eos % (Auto) 0.6 L (0.7-5.8) Baso % (Auto) 0.5 (0.1-1.2) % Neut # (Auto) 5.84 (1.56-6.13) K/mm3 Lymph # (Auto) 2.34 (1.18-3.74) K/mm3 [place] # (Auto) 0.55 H (0.24-0.36) K/mm3 Eos # (Auto) 0.05 (0.04-0.36) K/mm3 Baso # (Auto) 0.04 (0.01-0.08) K/mm3 Sodium 138 (136-145) mEq/L Potassium 4.1 (3.5-5.1) mEq/L Chloride 105 (98-107) mEq/L Carbon Dioxide 21 (21-32) mEq/L Anion Gap 16.1 H (5-15) BUN 16 (7-18) mg/dL Creatinine 0.7 (0.55-1.02) mg/dL Est Cr Clr Drug Dosing 65.99 mL/min Estimated GFR (MDRD) > 60 (>60) mL/min BUN/Creatinine Ratio 22.9 H (14-18) Glucose 106 (74-106) mg/dL Calcium 9.2 (8.5-10.1) mg/dL Total Bilirubin 0.3 (0.2-1.0) mg/dL AST 17 (15-37) U/L ALT 30 (14-59) U/L Alkaline Phosphatase 123 H (46-116) U/L Total Protein 8.2 (6.4-8.2) g/dl Albumin 3.8 (3.4-5.0) g/dl Globulin 4.4 gm/dL Albumin/Globulin Ratio 0.9 L (1-2) Urine Color Yellow (Yellow) Urine Appearance Slt cloudy H (Clear) Urine pH 5.0 (5.0-8.0) Ur Specific [place] > or = 1.030 (1.005-1.030) Urine Protein Trace H (Negative) Urine Glucose (UA) Negative (Negative) Urine Ketones Negative (Negative) Urine Occult Blood 3+ H (Negative) Urine Nitrite Negative (Negative) Urine Bilirubin Negative (Negative) Urine Urobilinogen 0.2 (0.2-1.0) Ur Leukocyte Esterase Trace H (Negative) Urine RBC 20-30 H (0-5) /hpf Urine WBC 5-10 H (0-5) /hpf Ur Epithelial Cells 5-10 H (0-5) /hpf Uric Acid Crystals Moderate H (NONE) Urine Bacteria Moderate H (FEW) /hpf Urine Mucus Many H (FEW) /hpf Meds: Medications Discontinued Medications Generic Name Dose Route Start Last Admin Trade Name Freq PRN Reason Stop Dose Admin Ondansetron HCl 4 mg 01/06/19 13:15 01/06/19 13:31 Zofran Odt PO 01/06/19 13:16 4 mg ONETIME ONE Administration Oxycodone/Acetaminophen 2 tab 01/06/19 13:15 01/06/19 13:31 Percocet 325-5 Mg PO 01/06/19 13:16 2 tab ONETIME ONE Administration - Re-Assessments/Exams Free Text/Narrative Re-Assessment/Exam: 01/06/19 14:00 I ordered labs, UA, percocet and zofran. Her Hgb is low at 9.6. Her anion gap is elevated at 16.1. Her alk phos is elevated at 123. Her UA does show blood and calcium oxylate and signs of a UTI. I will need to treat her for a UTI and give her something for pain. 01/06/19 14:14 She is still nauseated. I will give her some more zofran. Departure - Departure Time of Disposition: 14:15 Disposition: Home, Self-Care 01 Condition: Good Clinical Impression: UTI, Urinary tract infectious disease, Kidney stone - Discharge Information *PRESCRIPTION DRUG MONITORING PROGRAM REVIEWED*: No *COPY OF PRESCRIPTION DRUG MONITORING REPORT IN PATIENT ELIDA: No Referrals: PCP,Not In Area [Primary Care Provider] - Forms: ED Department Discharge Additional Instructions: Follow up with your urologist in [place]. Take the medication as prescribed. Please return if you are worse. - My Orders Last 24 Hours: My Active Orders 01/06/19 13:22 CBC WITH AUTO DIFF [HEME] Stat 01/06/19 14:14 Ondansetron [Zofran ODT] 4 mg PO ONETIME ONE - Assessment/Plan Last 24 Hours: My Active Orders 01/06/19 13:22 CBC WITH AUTO DIFF [HEME] Stat 01/06/19 14:14 Ondansetron [Zofran ODT] 4 mg PO ONETIME ONE
== END 2019-01-06 14:30 | disposition home or self-care (01) ==
LOC: JD.ED 12:33
DX: N20.0 Calculus of kidney (principal); N39.0 Urinary tract infection, site not specified; D64.9 Anemia, unspecified; I10 Essential (primary) hypertension; Z88.6 Allergy status to analgesic agent; Z88.8 Allergy status to other drugs, medicaments and biological substances; Z88.2 Allergy status to sulfonamides; Z79.899 Other long term (current) drug therapy; E66.9 Obesity, unspecified; Z68.30 Body mass index [BMI] 30.0-30.9, adult; Z90.49 Acquired absence of other specified parts of digestive tract; Z90.710 Acquired absence of both cervix and uterus
CPT/HCPCS: 36415; 80053; 81001; 85025; 99284; A9270; 99283

== ENCOUNTER 2019-01-20 11:58 | Emergency (ER) | payer MEDICAID ==
[2019-01-20] MEDS ORDERED: Acetaminophen/oxyCODONE 325-5 MG Tab PO ONE (12:25)
[2019-01-20] MEDS ORDERED: Ondansetron 4 MG Tab.DIS PO ONE (12:26)
--- NOTE | 2019-01-20 12:34 | EDM.PDOC ---
ED HPI GENERAL MEDICAL PROBLEM - General Chief Complaint: Genitourinary Problem Stated Complaint: BACK AND GROIN PAIN Time Seen by Provider: 01/20/19 12:06 Source of Information: Reports: Patient, RN Notes Reviewed History Limitations: Reports: No Limitations - History of Present Illness INITIAL COMMENTS - FREE TEXT/NARRATIVE: Patient is a 53-year-old female who presents to the ED for evaluation of left- sided flank pain. The patient has had multiple visits to this ER for similar symptoms, her most recent visit was last week. She did have an appointment with her specialist in [place], and she states that everything went good and there was no other concerns at that visit. The patient states that after returning from [place], late Monday night or early Monday morning at 2 AM she developed some left-sided pain. This pain was okay on Monday, however during the night and into Monday morning the pain worsened. The patient states she does have urinary urgency and frequency, and she states when she begins the stream she has ended initial stabbing pain, back goes away as soon as she starts bleeding. She thought she saw some strings of blood in the urine today, however but she states that they did do a kidney stone removal at her [place] doctor visit. She did not require stents at this visit this time. Patient notes a extensive history of crystallization in her urine, which she characterizes as kind of "sludge type" stones that cause issues from time to time. Patient did not take any sort of pain medication at home for this, and she states that she vomited twice due to the pain. She denies any fevers or chills. She does have a prior history of metastatic breast cancer and a bladder tumor removal. back Pain Score (Numeric/FACES): 6 - Related Data Allergies Allergy/AdvReac Type Severity Reaction Status Date / Time codeine Allergy Itching Verified 01/20/19 12:05 fentanyl Allergy Other Verified 01/20/19 12:05 Sulfa (Sulfonamide Allergy Hives Verified 01/20/19 12:05 Antibiotics) metoclopramide [From Reglan] AdvReac Other Verified 01/20/19 12:05 Home Meds: Home Meds Losartan [Cozaar] 50 mg PO DAILY 08/19/18 [History] Metoprolol Succinate 100 mg PO BID 08/19/18 [History] Potassium Chloride [Klor-Con M20] 60 meq PO DAILY 08/19/18 [History] Apixaban [Eliquis] 5 mg PO BID 10/18/18 [History] Ferrous Sulfate [Iron] 325 mg PO DAILY 10/18/18 [History] Ciprofloxacin [Ciprofloxacin HCl] 500 mg PO BID #14 tab 01/20/19 [Rx] Past Medical History HEENT History: Reports: Impaired Vision Other HEENT History: Wears glasses Cardiovascular History: Reports: Blood Clots/VTE/DVT, Hypertension Other Cardiovascular History: L leg blood clot Gastrointestinal History: Reports: Diverticulosis, Hiatal Hernia, Inflammatory Bowel Disease, PUD Genitourinary History: Reports: Renal Calculus Other Genitourinary History: 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: Musculoskeletal History: Reports: Arthritis, Fracture Endocrine/Metabolic History: Reports: Obesity/BMI 30+ Hematologic History: Reports: Blood Transfusion(s) Other Hematologic History: every 6 months- anemic Oncologic (Cancer) History: Reports: Breast, Other (See Below) Other Oncologic History: mets to c5-c7, mets to kidney and liver - Infectious Disease History Infectious Disease History: Reports: Chicken Pox, Shingles - Past Surgical History HEENT Surgical History: Reports: Oral Surgery Other HEENT Surgeries/Procedures: wisdom teeth Cardiovascular Surgical History: Reports: Vascular Surgery Other Cardiovascular Surgeries/Procedures: Splenic aneuryn coil GI Surgical History: Reports: Appendectomy, Cholecystectomy, Colon, Colonoscopy , EGD, Other (See Below) Female Surgical History: Reports: Section, Hysterectomy, Other (See Below) Other Female Surgeries/Procedures: bladder tumor removed last monday Musculoskeletal Surgical History: Reports: ORIF Other Musculoskeletal Surgeries/Procedures:: Finger sx, 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 Oncologic Surgical History: Reports: Biopsy of Breast, Other (See Below) Social & Family History - Family History Family Medical History: Noncontributory Oncologic: Reports: Uterine - Tobacco Use Smoking Status *Q: Never Smoker - Caffeine Use Caffeine Use: Reports: None - Recreational Drug Use Recreational Drug Use: No - Living Situation & Occupation Living situation: Reports: , with Spouse Occupation: Unemployed ED ROS GENERAL - Review of Systems Review Of Systems: See Below Constitutional: Denies: Fever, Chills HEENT: Reports: No Symptoms Respiratory: Denies: Shortness of Breath Cardiovascular: Denies: Chest Pain Endocrine: Reports: No Symptoms GI/Abdominal: Reports: Nausea, Vomiting. Denies: Abdominal Pain, Constipation, Diarrhea : Reports: Dysuria, Flank Pain (Left), Frequency, Urgency Musculoskeletal: Reports: No Symptoms Skin: Reports: No Symptoms Neurological: Reports: No Symptoms Psychiatric: Reports: No Symptoms Hematologic/Lymphatic: Reports: No Symptoms ED EXAM, RENAL/ - Physical Exam Exam: See Below Exam Limited By: No Limitations General Appearance: Alert, WD/WN, No Apparent Distress Respiratory/Chest: No Respiratory Distress, Lungs Clear, Normal Breath Sounds, No Accessory Muscle Use, Chest Non-Tender Cardiovascular: Normal Peripheral Pulses, Regular Rate, Rhythm, No Murmur GI/Abdominal: Normal Bowel Sounds, Soft, Non-Tender, No Distention, No Mass Back Exam: Normal Inspection, Full Range of Motion, CVA Tenderness (L). No: CVA Tenderness (R) Extremities: Normal Inspection, Normal Capillary Refill Neurological: Alert, Oriented, Normal Cognition, No Motor/Sensory Deficits Psychiatric: Normal Affect, Normal Mood Skin Exam: Warm, Dry, Intact, Normal Color, No Rash Course - Vital Signs Last Recorded V/S: Last Vital Signs Temp 98.1 F 01/20/19 12:02 Pulse 116 H 01/20/19 12:02 Resp 22 H 01/20/19 12:02 BP 162/91 H 01/20/19 12:02 Pulse Ox 98 01/20/19 12:02 - Orders/Labs/Meds Orders: Active Orders 24 hr Category Date Time Status Strain Urine [RC] ASDIRECTED Care 01/20/19 12:24 Active CULTURE URINE [RM] Stat Lab 01/20/19 13:47 Ordered Labs: Laboratory Tests 01/20/19 Range/Units 12:25 Urine Color Yellow (Yellow) Urine Appearance Slt cloudy H (Clear) Urine pH 5.5 (5.0-8.0) Ur Specific [place] > or = 1.030 (1.005-1.030) Urine Protein 1+ H (Negative) Urine Glucose (UA) Negative (Negative) Urine Ketones Negative (Negative) Urine Occult Blood 3+ H (Negative) Urine Nitrite Negative (Negative) Urine Bilirubin Negative (Negative) Urine Urobilinogen 0.2 (0.2-1.0) Ur Leukocyte Esterase Trace H (Negative) Urine RBC 75-100 H (0-5) /hpf Urine WBC 5-10 H (0-5) /hpf Ur Epithelial Cells 10-20 H (0-5) /hpf Urine Bacteria Few (FEW) /hpf Urine Mucus Few (FEW) /hpf Meds: Medications Discontinued Medications Generic Name Dose Route Start Last Admin Trade Name Ruthann PRN Reason Stop Dose Admin Ondansetron HCl 4 mg 01/20/19 12:26 01/20/19 12:33 Zofran Odt PO 01/20/19 12:27 4 mg ONETIME ONE Administration Oxycodone/Acetaminophen 2 tab 01/20/19 12:25 01/20/19 12:32 Percocet 325-5 Mg PO 01/20/19 12:26 2 tab ONETIME ONE Administration - Re-Assessments/Exams Free Text/Narrative Re-Assessment/Exam: 01/20/19 12:32 Patient resents to the ED for the evaluation of a possible kidney stone, due to her extensive history, I did offer her the option of CT or no CT, and she opted for a CT at today's visit as she thinks she might have a kidney stone trying to pass. I did also order a UA to evaluate for possible UTI, 2 tabs of 5/325 percocet and 4 mg ODT zofran. 01/20/19 13:[address] is done, and there are no acute abnormalities appreciated as compared to her prior CT done at the end of October. There is still a 1.5 cm lesion noted off of the left kidney which is similar to prior exams, this is difficult to exclude a low-grade renal cell carcinoma. There are several nonobstructing renal calculi within both kidneys but no ureteral dilatation or ureteral stone is seen at today's visit. UA is contaminated but her symptoms are suggestive of a UTI in nature. I will send the urine for culture and get her on some antibiotics. We will discharge patient home with general recommendations. Departure - Departure Time of Disposition: 13:55 Disposition: Home, Self-Care 01 Condition: Fair Clinical Impression: UTI (urinary tract infection) Qualifiers: Urinary tract infection type: acute cystitis Hematuria presence: with hematuria Qualified Code(s): N30.01 - Acute cystitis with hematuria - Discharge Information *PRESCRIPTION DRUG MONITORING PROGRAM REVIEWED*: Yes *COPY OF PRESCRIPTION DRUG MONITORING REPORT IN PATIENT ELIDA: No Prescriptions: Ciprofloxacin [Ciprofloxacin HCl] 500 mg PO BID #14 tab Instructions: Urinary Tract Infection, Adult, [id number] Referrals: PCP,Not In Area [Primary Care Provider] - Forms: ED Department Discharge Additional Instructions: You were evaluated in the ER today for your left sided flank pain. A CT was done, and demonstrates no acute renal stones that are trying to pass. There are a few nonobstructing stones noted within both of your kidneys. There is still a 1.5 cm lesion in the left kidney, but this does not seem to have grown since the last exam. There are no other acute changes noted to your abdomen and pelvis CT. Your urinalysis is suggestive of a UTI in nature, he'll be given a prescription for antibiotics, please take as directed until gone. Please return to the ED if your symptoms change or worsen. - My Orders Last 24 Hours: My Active Orders 01/20/19 12:24 Strain Urine [RC] ASDIRECTED 01/20/19 13:47 CULTURE URINE [RM] Stat - Assessment/Plan Last 24 Hours: My Active Orders 01/20/19 12:24 Strain Urine [RC] ASDIRECTED 01/20/19 13:47 CULTURE URINE [RM] Stat
--- NOTE | 2019-01-20 13:42 | CT ---
CT abdomen and pelvis Technique: Multiple axial sections were obtained from above the kidneys inferiorly through the pubic symphysis. Intravenous and oral contrast not utilized. Study has been performed as a ureteral stone protocol. Findings: Small solid abnormality is noted off the left kidney which appears similar to previous exams. This measures about 1.5 cm. Difficult to exclude a low-grade renal cell carcinoma as the etiology. Calcifications are seen within both kidneys compatible with nonobstructing calculi is calcifications are similar to most recent CT exam. No ureteral dilatation or ureteral stone is seen. Visualized lung bases show nothing acute. Liver contains a small cyst within the right lobe measuring about 1.3 cm. Intrahepatic biliary duct dilatation is seen. Surgical clips are noted from prior cholecystectomy. Metallic densities which appears to correlate to embolization coil is also seen within the upper abdomen next to the body of the pancreas. Adrenal glands show no nodule. Aorta shows no aneurysm. No retroperitoneal adenopathy or mesenteric abnormalities are seen. Small anterior abdominal wall hernia is noted which contains a loop of small bowel. Small bowel does not appear to be dilated and therefore hernia is causing no incarceration. No pelvic mass or adenopathy is seen. No free fluid or inflammatory change is seen within the abdomen or pelvis. Previous right hemicolectomy is noted. Bone window settings were reviewed which appear within normal limits for the patient's age. Impression: 1. Nonobstructing renal calculi within both kidneys. No ureteral dilatation or ureteral stone is seen. 2. Stable solid-appearing abnormality within the right kidney measuring about 1.5 cm. Difficult to exclude a low-grade renal carcinoma. 3. Small anterior abdominal wall hernia containing a loop of small bowel which shows no incarceration. 4. Nothing acute is appreciated on noncontrast CT study of the abdomen and pelvis. Diagnostic code #9
== END 2019-01-20 14:19 | disposition home or self-care (01) ==
LOC: JD.ED 11:58
DX: N30.01 Acute cystitis with hematuria (principal); I10 Essential (primary) hypertension; Z86.718 Personal history of other venous thrombosis and embolism; E66.9 Obesity, unspecified; Z68.33 Body mass index [BMI] 33.0-33.9, adult; Z88.5 Allergy status to narcotic agent; Z88.6 Allergy status to analgesic agent; Z88.2 Allergy status to sulfonamides; Z88.8 Allergy status to other drugs, medicaments and biological substances; Z79.01 Long term (current) use of anticoagulants; Z79.899 Other long term (current) drug therapy
CPT/HCPCS: 74176; 81001; 87086; 99284; A9270

== ENCOUNTER 2019-01-28 14:29 | Emergency (ER) | payer SELFPAY ==
--- NOTE | 2019-01-28 17:25 | EDM.PDOC ---
ED HPI GENERAL MEDICAL PROBLEM - General Chief Complaint: Gastrointestinal Problem Stated Complaint: VOMITING AND DIARRHEA Time Seen by Provider: 01/28/19 15:10 Source of Information: Reports: Patient History Limitations: Reports: No Limitations - History of Present Illness INITIAL COMMENTS - FREE TEXT/NARRATIVE: The patient presents with abdominal pain and diarrhea. This started a few days ago. She has been on levaquin for a kidney stone. She has no nausea or vomiting. She has a history of clostridium difficile in the past. She has no chest pain or shortness of breath. Onset: Gradual Duration: Day(s): Location: Reports: Abdomen Quality: Reports: Ache Severity: Moderate Improves with: Reports: None Worsens with: Reports: None Associated Symptoms: Reports: No Other Symptoms Abdomen Pain Score (Numeric/FACES): 7 - Related Data Allergies Allergy/AdvReac Type Severity Reaction Status Date / Time codeine Allergy Itching Verified 01/28/19 15:05 fentanyl Allergy Other Verified 01/28/19 15:05 Sulfa (Sulfonamide Allergy Hives Verified 01/28/19 15:05 Antibiotics) metoclopramide [From Reglan] AdvReac Other Verified 01/28/19 15:05 Home Meds: Home Meds Losartan [Cozaar] 50 mg PO DAILY 08/19/18 [History] Metoprolol Succinate 100 mg PO BID 08/19/18 [History] Potassium Chloride [Klor-Con M20] 60 meq PO DAILY 08/19/18 [History] Apixaban [Eliquis] 5 mg PO BID 10/18/18 [History] Ferrous Sulfate [Iron] 325 mg PO DAILY 10/18/18 [History] Hydrocodone/Acetaminophen [Hydrocodon-Acetaminophen 5-325] 1 - 2 each PO Q6HR PRN #10 tablet 01/28/19 [Rx] Levofloxacin [Levaquin] 500 mg PO DAILY 01/28/19 [History] Ondansetron [Zofran ODT] 4 mg PO Q6H PRN #20 tab.dis 01/28/19 [Rx] Past Medical History HEENT History: Reports: Impaired Vision Other HEENT History: Wears glasses Cardiovascular History: Reports: Blood Clots/VTE/DVT, Hypertension Other Cardiovascular History: L leg blood clot Gastrointestinal History: Reports: Diverticulosis, Hiatal Hernia, Inflammatory Bowel Disease, PUD Genitourinary History: Reports: Renal Calculus Other Genitourinary History: 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 - Infectious Disease History Infectious Disease History: Reports: C-Difficile, Chicken Pox, Shingles - Past Surgical History HEENT Surgical History: Reports: Oral Surgery Other HEENT Surgeries/Procedures: wisdom teeth Cardiovascular Surgical History: Reports: Vascular Surgery Other Cardiovascular Surgeries/Procedures: Splenic aneuryn coil GI Surgical History: Reports: Appendectomy, Cholecystectomy, Colon, Colonoscopy , EGD Female Surgical History: Reports: Section, Hysterectomy, Other (See Below) Other Female Surgeries/Procedures: bladder tumor removed last monday Musculoskeletal Surgical History: Reports: ORIF Other Musculoskeletal Surgeries/Procedures:: Finger sx, 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 Oncologic Surgical History: Reports: Biopsy of Breast Social & Family History - Family History Family Medical History: Noncontributory Oncologic: Reports: Uterine - Tobacco Use Smoking Status *Q: Never Smoker - Caffeine Use Caffeine Use: Reports: None - Recreational Drug Use Recreational Drug Use: No - Living Situation & Occupation Living situation: Reports: , with Spouse Occupation: Unemployed ED ROS GENERAL - Review of Systems Review Of Systems: See Below Constitutional: Reports: No Symptoms HEENT: Reports: No Symptoms Respiratory: Reports: No Symptoms Cardiovascular: Reports: No Symptoms Endocrine: Reports: No Symptoms GI/Abdominal: Reports: Abdominal Pain, Diarrhea. Denies: Nausea, Vomiting : Reports: No Symptoms Musculoskeletal: Reports: No Symptoms ED EXAM, GI/ABD - Physical Exam Exam: See Below Exam Limited By: No Limitations General Appearance: Alert, No Apparent Distress Ears: Normal External Exam Nose: Normal Inspection Head: Atraumatic, Normocephalic Neck: Normal Inspection Respiratory/Chest: No Respiratory Distress, Lungs Clear, Normal Breath Sounds Cardiovascular: Regular Rate, Rhythm, No Edema, No Murmur GI/Abdominal Exam: Soft, No Organomegaly, No Mass, Tender (Moderate generalized tenderness) Extremities: Normal Inspection Neurological: Alert, Oriented, No Motor/Sensory Deficits Course - Vital Signs Last Recorded V/S: Last Vital Signs Temp 98.6 F 01/28/19 15:02 Pulse 100 01/28/19 15:02 Resp 18 01/28/19 15:02 BP 165/108 H 01/28/19 15:02 Pulse Ox 100 01/28/19 15:02 - Orders/Labs/Meds Orders: Active Orders 24 hr Category Date Time Status CULTURE STOOL + SHIGATOX [RM] Stat Lab 01/28/19 15:41 Ordered Isolation [COMM] Stat Oth 01/28/19 15:42 Ordered Labs: Laboratory Tests 01/28/19 Range/Units 15:42 C.difficile [id number] Presumptive negative C. difficile Tox (PCR) Negative - Re-Assessments/Exams Free Text/Narrative Re-Assessment/Exam: 01/28/19 17:25 I ordered a c-dif and culture. 01/28/19 17:31 The C-dif looks good. Departure - Departure Time of Disposition: 17:35 Disposition: Home, Self-Care 01 Condition: Good Clinical Impression: RUQ abdominal pain Diarrhea Qualifiers: Diarrhea type: unspecified type Qualified Code(s): R19.7 - Diarrhea, unspecified - Discharge Information *PRESCRIPTION DRUG MONITORING PROGRAM REVIEWED*: No *COPY OF PRESCRIPTION DRUG MONITORING REPORT IN PATIENT ELIDA: No Prescriptions: Hydrocodone/Acetaminophen [Hydrocodon-Acetaminophen 5-325] 1 - 2 each PO Q6HR PRN #10 tablet PRN Reason: Pain Ondansetron [Zofran ODT] 4 mg PO Q6H PRN #20 tab.dis PRN Reason: Nausea\vomiting Referrals: PCP,Not In Area [Primary Care Provider] - Forms: ED Department Discharge Additional Instructions: Take the hydrocodone as needed for pain. Take the zofran for nausea. Drink plenty of fluids. Please return if you are worse. - My Orders Last 24 Hours: My Active Orders 01/28/19 15:41 CULTURE STOOL + SHIGATOX [RM] Stat 01/28/19 15:42 Isolation [COMM] Stat - Assessment/Plan Last 24 Hours: My Active Orders 01/28/19 15:41 CULTURE STOOL + SHIGATOX [RM] Stat 01/28/19 15:42 Isolation [COMM] Stat
== END 2019-01-28 17:45 | disposition home or self-care (01) ==
LOC: JD.ED 14:29
DX: R10.11 Right upper quadrant pain (principal); R19.7 Diarrhea, unspecified; I10 Essential (primary) hypertension; E66.9 Obesity, unspecified; Z68.33 Body mass index [BMI] 33.0-33.9, adult; Z88.5 Allergy status to narcotic agent; Z88.2 Allergy status to sulfonamides; Z88.8 Allergy status to other drugs, medicaments and biological substances; Z79.899 Other long term (current) drug therapy; Z86.718 Personal history of other venous thrombosis and embolism; Z79.01 Long term (current) use of anticoagulants; Z90.49 Acquired absence of other specified parts of digestive tract; Z90.89 Acquired absence of other organs; Z90.710 Acquired absence of both cervix and uterus
CPT/HCPCS: 87046; 87427; 87493; 99283; 99284

== ENCOUNTER 2019-02-17 10:47 | Emergency (ER) | payer SELFPAY ==
--- NOTE | 2019-02-17 11:11 | EDM.PDOC ---
ED HPI GENERAL MEDICAL PROBLEM - General Chief Complaint: Lower Extremity Injury/Pain Stated Complaint: LEFT LEG PAIN Time Seen by Provider: 02/17/19 11:08 Source of Information: Reports: Patient, RN Notes Reviewed History Limitations: Reports: No Limitations - History of Present Illness INITIAL COMMENTS - FREE TEXT/NARRATIVE: Patient is a 53-year-old female who presents to the ED for evaluation of a left lower leg injury. Patient states that while she was doing laundry on Monday, her left knee gave out and she went down to her knees, this happened twice that day. She notes that she has had a blood clot in this leg in times prior, however she knows that she is unable request, and has not missed a dose. There is no redness to the area, there is mild swelling inferior to the left knee and , on the proximal tib-fib to the medial side. Patient states that she has been using ice, and heat, and she has a lot of pain with weightbearing at this time. She was worried about why her knee gave out, and was upset, she doesn't know why her knees were giving out. As this only happened twice that day, and has not happened since, she did not feel any dizziness or lightheadedness, and felt well up until then. She notes that Tylenol does help throughout the day to decrease the pain, and that her left over Percocet prescription helped with the pain at night so she can get some sleep. Left Knee Pain Score (Numeric/FACES): 6 - Related Data Allergies Allergy/AdvReac Type Severity Reaction Status Date / Time codeine Allergy Itching Verified 01/28/19 15:05 fentanyl Allergy Other Verified 01/28/19 15:05 Sulfa (Sulfonamide Allergy Hives Verified 01/28/19 15:05 Antibiotics) metoclopramide [From Reglan] AdvReac Other Verified 01/28/19 15:05 Home Meds: Home Meds Losartan [Cozaar] 50 mg PO DAILY 08/19/18 [History] Metoprolol Succinate 100 mg PO BID 08/19/18 [History] Potassium Chloride [Klor-Con M20] 60 meq PO DAILY 08/19/18 [History] Apixaban [Eliquis] 5 mg PO BID 10/18/18 [History] Ferrous Sulfate [Iron] 325 mg PO DAILY 10/18/18 [History] Ondansetron [Zofran ODT] 4 mg PO Q6H PRN #20 tab.dis 01/28/19 [Rx] Potassium Citrate [Potassium Citrate ER] 20 meq PO TID 02/17/19 [History] Past Medical History HEENT History: Reports: Impaired Vision Other HEENT History: Wears glasses Cardiovascular History: Reports: Blood Clots/VTE/DVT, Hypertension Other Cardiovascular History: L leg blood clot Gastrointestinal History: Reports: Diverticulosis, Hiatal Hernia, Inflammatory Bowel Disease, PUD Genitourinary History: Reports: Renal Calculus Other Genitourinary History: 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 - Infectious Disease History Infectious Disease History: Reports: C-Difficile, Chicken Pox, Shingles - Past Surgical History HEENT Surgical History: Reports: Oral Surgery Other HEENT Surgeries/Procedures: wisdom teeth Cardiovascular Surgical History: Reports: Vascular Surgery Other Cardiovascular Surgeries/Procedures: Splenic aneuryn coil GI Surgical History: Reports: Appendectomy, Cholecystectomy, Colon, Colonoscopy , EGD Female Surgical History: Reports: Section, Hysterectomy, Other (See Below) Other Female Surgeries/Procedures: bladder tumor removed last monday Musculoskeletal Surgical History: Reports: ORIF Other Musculoskeletal Surgeries/Procedures:: Finger sx, 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 Oncologic Surgical History: Reports: Biopsy of Breast Social & Family History - Family History Family Medical History: Noncontributory Oncologic: Reports: Uterine - Tobacco Use Smoking Status *Q: Never Smoker - Caffeine Use Caffeine Use: Reports: Soda - Recreational Drug Use Recreational Drug Use: No - Living Situation & Occupation Living situation: Reports: , with Spouse Occupation: Unemployed Review of Systems - Review of Systems Review Of Systems: See Below Constitutional: Denies: Chills, Fever Eyes: Reports: No Symptoms Ears: Denies: Dizziness Respiratory: Denies: Shortness of Breath, Cough Cardiovascular: Denies: Chest Pain Musculoskeletal: Reports: Leg Pain (Left lower leg) Skin: Denies: Pallor, Bruising, Wound Neurological: Denies: Numbness, Tingling Psychiatric: Reports: No Symptoms ED EXAM, GENERAL - Physical Exam Exam: See Below Exam Limited By: No Limitations General Appearance: Alert, WD/WN, No Apparent Distress Eye Exam: Bilateral Eye: EOMI, Normal Inspection, PERRL Throat/Mouth: Normal Inspection, Normal Lips, Normal Teeth, Normal Gums, Normal Oropharynx, Normal Voice, No Airway Compromise Respiratory/Chest: No Respiratory Distress, Lungs Clear, Normal Breath Sounds, No Accessory Muscle Use, Chest Non-Tender Cardiovascular: Normal Peripheral Pulses, Regular Rate, Rhythm, No Murmur Peripheral Pulses: 3+: Dorsalis Pedis (L), Dorsalis Pedis (R) Extremities: Normal Inspection, Normal Capillary Refill, Leg Pain (Left medial proximal tib/fib swelling), Limited Range of Motion (of left lower leg d/t pain) . No: Increased Warmth, Pallor, Redness Neurological: Alert, Oriented, Normal Cognition, No Motor/Sensory Deficits Psychiatric: Normal Affect, Normal Mood Skin Exam: Warm, Dry, Intact, Normal Color, No Rash Course - Vital Signs Last Recorded V/S: Last Vital Signs Temp 98.2 F 02/17/19 10:59 Pulse 83 02/17/19 10:59 Resp 20 02/17/19 10:59 BP 150/82 H 02/17/19 10:59 Pulse Ox 96 02/17/19 10:59 - Orders/Labs/Meds Meds: Medications Discontinued Medications Generic Name Dose Route Start Last Admin Trade Name Freq PRN Reason Stop Dose Admin Ketorolac Tromethamine 60 mg 02/17/19 11:34 02/17/19 11:43 Toradol IM 02/17/19 11:35 60 mg ONETIME ONE Administration - Re-Assessments/Exams Free Text/Narrative Re-Assessment/Exam: 02/17/19 11:41 Patient presents to the ED for the evaluation of a left lower leg/knee injury. They declined any sort x-rays at this time, I do suspect more of a soft tissue injury such as a traumatic hematoma or contusion, I did relay this to the patient, and stated that due to her being on a liquid it is highly unlikely that she has a blood clot in this area, I gave general recommendations for conservative management, and she is okay with this at this time. We will provide an order for outpatient MRI for further imaging, and have her follow up with Ortho. I did also order a 60 mg IM injection of Toradol for pain management in the ER, she was told not to take ibuprofen ever due to her blood that are used, I did discuss the risk and benefits with Dr. Conroy, and he thinks a 1 time dose of Toradol should not be detrimental to the patient. Departure - Departure Time of Disposition: 11:42 Disposition: Home, Self-Care 01 Condition: Fair Clinical Impression: Contusion of left knee Qualifiers: Encounter type: initial encounter Qualified Code(s): S80.02XA - Contusion of left knee, initial encounter - Discharge Information *PRESCRIPTION DRUG MONITORING PROGRAM REVIEWED*: Yes *COPY OF PRESCRIPTION DRUG MONITORING REPORT IN PATIENT ELIDA: No Instructions: Contusion, [id number] Referrals: PCP,Not In Area [Primary Care Provider] - Forms: ED Department Discharge Additional Instructions: You have been evaluated in the ED for your Left knee/lower leg pain. This is most likely due to a soft tissue injury or contusion to the area. Please use ice/heat as tolerated to the affected area. Please try to elevate the affected area to relieve swelling. You may take Tylenol 500 mg q6 hrs for pain relief. Please do so until you have a tolerable level of pain with activity. Do not exceed 4000mg Tylenol in a 24 hour time period. You were given a script for percocet 5/325, Please take this at night, and try to take as little of this as possible as this medication can be addictive. This med can be constipating, recommend taking a stool softener if not already doing so. You were provided with an outpatient MRI order, our x-ray department will call you to schedule this, you should follow up with Dr. King after this. His phone number is [phone]. Please return to ED if your symptoms should change or worsen.
[2019-02-17] MEDS ORDERED: Ketorolac 60 MG/2 ML SDV IM ONE (11:34)
== END 2019-02-17 12:08 | disposition home or self-care (01) ==
LOC: JD.ED 10:47
DX: S80.02XA Contusion of left knee, initial encounter (principal); I10 Essential (primary) hypertension; E66.9 Obesity, unspecified; I82.409 Acute embolism and thrombosis of unspecified deep veins of unspecified lower extremity; Z88.5 Allergy status to narcotic agent; Z88.6 Allergy status to analgesic agent; Z88.2 Allergy status to sulfonamides; Z88.8 Allergy status to other drugs, medicaments and biological substances; Z79.899 Other long term (current) drug therapy; Z68.33 Body mass index [BMI] 33.0-33.9, adult; Z79.01 Long term (current) use of anticoagulants; W19.XXXA Unspecified fall, initial encounter; Y93.E2 Activity, laundry
CPT/HCPCS: 96374; 99283; J1885